=== PATIENT | female | born 1985 | race African-American/Black ===

== ENCOUNTER 2024-06-07 16:11 | Emergency (ER) | payer OTHER ==
[~2024-06-07] VITALS: Ht 165.1 cm; Wt 122.9 kg
[2024-06-07 16:19] VITALS: BP 135/86; TEMP 36.9; O2SAT 100
[2024-06-07 16:22] VITALS: PULSE 111; RESP 18; O2SAT 99
== END 2024-06-07 18:51 | disposition home or self-care (01) ==
LOC: ER 16:11
DX: M79.601 Pain in right arm (principal); Z98.890 Other specified postprocedural states
CPT/HCPCS: 73060; 99283